=== PATIENT | female | born 1980 | race Caucasian/White ===

== ENCOUNTER → 2020-11-25 | Outpatient (CLI) | payer MEDICAID | LOC: MHCPAIN 09:41 | DX: M79.2 Neuralgia and neuritis, unspecified (principal); G57.11 Meralgia paresthetica, right lower limb; G89.29 Other chronic pain | CPT/HCPCS: G0463 ==

== ENCOUNTER → 2020-12-09 | Outpatient (CLI) | payer MEDICAID | LOC: MHCPAIN 10:08 | CPT/HCPCS: J1040 ==